=== PATIENT | male | born 1990 ===

== ENCOUNTER 2018-07-07 21:15 | Emergency (ER) | payer MEDICAID, OTHER ==
[~2018-07-07] VITALS: Ht 170.2 cm; Wt 76.5 kg
[2018-07-07 21:22] VITALS: BP 149/98
== END 2018-07-07 22:09 | disposition home or self-care (01) ==
LOC: ED 21:55
DX: L02.01 Cutaneous abscess of face (principal); K08.89 Other specified disorders of teeth and supporting structures; I10 Essential (primary) hypertension
CPT/HCPCS: 99283